=== PATIENT | female | born 1985 | race Caucasian/White ===

== ENCOUNTER 2021-10-26 10:00 | Outpatient (RCR) | payer BC, SELFPAY ==
--- NOTE | 2021-09-18 17:55 | HP.PTEVAL_ITS ---
Patient's Visit Information SHAQ ABAD is a 35 year old F referred to Physical Therapy by TWIN Villanueva with a diagnosis of R shoulder impingement syndrome. Date of Evaluation: 09/18/21 Physical Therapist: Ricci Vann, PT, ATC - Visit Plan Frequency: 2x /Week Duration: 1 Week Plan: Issue and instruct pt on HEP of R shoulder strengthening (rotator cuff) and scapular stab ex's - Subjective Pt reports she has had R shoulder pain for a chronic period of time. 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 Pt reports the pain has continued to worsen over this period. Pt is R hand dominant. Pt reports she has tingling in her R UE that starts at the elbow region and radiates into the 4th and fifth digits. 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 Pt reports she has had x-rays which revealed no significant findings at this time. Pt reports she has difficulty with sleep at night secondary to pain. Pt reports her pain is the worst on the lateral aspect of R shoulder. R shoulder pain is 7/10 at rest, 10/10 at worst (when she attempts to roll over at night. - Pain R shoulder Pain Intensity (Out of 10): 7 Pain Intensity Range: 10 - Objective Neuro: B UE sensation is WNL to light touch with exception to R C5 dermatome which is hyposensitive. MMT: L shoulder is 5/5 throughout. R shoulder is 3+/5 throughout and painful with all testing. ROM: L shoulder flex= 160, abd= 180, ER= 75, IR WNL; R shoulder flex= 140, abd= 110, IR limited to L4 level. Special testing: severe pain with apprehension and empty can tests. Palpation: Severe pain on lateral aspect of R UE. - Balance/Special Test Scores Quick DASH Score: 79.5450 - Goals Goal 1:: Decrease R shoulder pain x 50% to aid with sleep Goal Time Frame: 2-4 Weeks Goal 2:: Increase R shoulder ROM x 20 degrees to aid with work requirements. Goal Time Frame: 2-4 Weeks Goal 3:: Increase R shoulder strength x 1 grade to aid with IADL's Goal Time Frame: 2-4 Weeks Goal 4:: I with HEP Goal Time Frame: 2-4 Weeks - Rehabilitation Potential Physical Therapy Diagnosis: Pt has R shoulder pain, weakness, and limited ROM secondary to suspected labral pathology Rehabilitation Potential: Good - Anticipated Interventions Patient/Client Instruction: Educate patient on: Condition, Plan of Care For the Purpose of:: To improve self management Therapeutic Exercise to Include: Strength training, Active ROM, Scapular Strength/Stabilization For the Purpose of:: To decrease pain, To increase ROM, To improve muscle performance and motor function Cryotherapy (ice pack, ice massage): Yes For the Purpose of:: To decrease pain, To increase ROM, To improve muscle performance and motor function Thank you for the opportunity to evaluate your patient. For Medicare and Medicare HMO plans, please review the plan of care and approve it. It will need to be FAXED BACK to us at [phone] for Medicare purposes. For Medicare only, by signing this I certify the plan of care. Please let me know if there are questions or concerns regarding this plan of care. Physician Signature: Da te:
--- NOTE | 2021-10-26 10:32 | HP.PTDCSUM ---
It has been my pleasure to treat SHAQ ABAD referred by TWIN Villanueva, with the diagnosis of R shoulder impingement syndrome for a total of 4 visit(s). Discharge Date: Please see the following information for a summary of their discharge status. Subjective: I have pain if I move the wrong way R shoulder Pain Intensity (Out of 10): 2 % Improvement: 70 Objective/Function: R shoulder pain ranges from 2-5/10. R shoulder ROM: flex= 160, abd= 135, ER= 60, IR WNL. R shoulder MMT: flex= 5/5, abd= 4-/5, ER= 5/5, IR= 4/5. Pt is I with HEP. Rx goals achieved Goal 1:: Decrease R shoulder pain x 50% to aid with sleep Goal Progress: Goal Met Goal 2:: Increase R shoulder ROM x 20 degrees to aid with work requirements. Goal Progress: Goal Met Goal 3:: Increase R shoulder strength x 1 grade to aid with IADL's Goal Progress: Goal Met Goal 4:: I with HEP Goal Progress: Goal Met Plan: Discharge to HEP If there are questions or concerns regarding this patient's physical therapy, please feel free to call me at [phone]. Thank you for the referral of this patient. Sincerely, Ricci Vann, PT, ATC Balance/Gait/Functional tests - Balance/Special Test Scores Quick DASH Score: 54.5450
== END 2021-10-26 10:45 | disposition home or self-care (01) ==
LOC: PT 10:00
PROVIDERS: Visit Provider Nurse Practitioner
DX: M75.41 Impingement syndrome of right shoulder (principal)
CPT/HCPCS: 97110; 97161; 97164

== ENCOUNTER → 2022-02-01 | Outpatient (CLI) | payer BC, SELFPAY ==
[2022-02-01 12:05] LABS: AST(SGOT) 10 U/L (15-37); Alanine Aminotransfer ALT/SGPT 14 U/L (13-56); Albumin, Serum 4.3 g/dL (3.2-5.0); Alkaline Phosphatase 56 U/L (45-117); Bilirubin, Direct 0.15 mg/dL (0.00-0.30); Globulin 3.4 g/dL (2.2-4.2); Protein, Total 7.7 g/dL (6.4-8.2); Triglycerides 46 mg/dL
== END | disposition home or self-care (01) ==
DX: L70.0 Acne vulgaris (principal); L81.4 Other melanin hyperpigmentation; L81.0 Postinflammatory hyperpigmentation; Z79.899 Other long term (current) drug therapy
CPT/HCPCS: 36415; 80076; 84478

== ENCOUNTER 2022-07-19 11:00 | Outpatient (RCR) | payer BC, SELFPAY ==
--- NOTE | 2022-06-28 18:01 | HP.PTEVAL_ITS ---
Patient's Visit Information SHAQ ABAD is a 36 year old F referred to Physical Therapy by Dr. Markos Nieves DO with a diagnosis of L patellar tendonitis. Date of Evaluation: 06/28/22 Physical Therapist: Ricci Vann PT, ATC - Visit Plan Frequency: 2-3x /Week Duration: 4 Weeks Plan: L knee stretching, foam rolling, eccentric strengthening, bike, US, and dry needling - Subjective Pt reports her L knee has been sore for greater than one year. Pt reports he pain had an insidious onset in nature. Pt reports at that time, hjer shoulder was very sore and she focused getting that better. Now that her shoulder is sore, she is here to get relief for her knee. Pt denies sig L knee trauma in the past. Pt reports her pain is located on the inferior pose of the L patella and on occasions, will radiate down her anterior mccormick. Pt also notes pain in the posterior aspect of her L knee. Pt reports her L knee will give out on her, and feel like it is going to hyperextend at this time. Pt denies L knee locking up or popping at this time. Pt denies tingling or numbness at this time. Pt reports she has had xrays which [id number] no significant findings. Pt reports she lives in a two story house and has to negotiate stairs daily. 2/10 pain at rest, 5/10 pain at worst (throughout her day at work). Pt reports prolonged standing and ambulating both increase her pain. Occasinal sleep difficulty secondary to pain - Pain L knee Pain Intensity (Out of 10): 2 Pain Intensity Range: 5 - Objective Neuro: B LE sensation is WNL to light touch. B achilles reflex= 2/3. Palpation: Minor crepitus with AROM. No obvious deformity at this time. Pt is very sore along patella tendon. ROM: R knee 0- 140; L knee 0-135 degrees. MMT: R knee flex= 31, ext= 37 #F; L knee flex= 1, ext= 17 #F. Special testing: Pos apley compression test, pos mcconnels - Balance/Special Test Scores Lower Extremity Functional Score: 66 - Goals Goal 1:: Decrease L knee pain x 50% to aid with sleep Goal Time Frame: 4-6 Weeks Goal 2:: Increase L knee strength x 10#F to aid with stair negotiation Goal Time Frame: 4-6 Weeks Goal 3:: I with HEP Goal Time Frame: 4-6 Weeks - Rehabilitation Potential Physical Therapy Diagnosis: L knee pain, weakness, and limited ROM secondary to L knee patellar tendonitis Rehabilitation Potential: Good - Anticipated Interventions Patient/Client Instruction: Educate patient on: Condition, Plan of Care For the Purpose of:: To improve self management Therapeutic Exercise to Include: Strength training, Endurance training, Flexibilty training, Dynamic Lumbar Stabilization For the Purpose of:: To decrease pain, To increase ROM, To improve muscle performance and motor function Cryotherapy (ice pack, ice massage): Yes Ultrasound (thermal/non thermal): Yes For the Purpose of:: To decrease pain Thank you for the opportunity to evaluate your patient. For Medicare and Medicare HMO plans, please review the plan of care and approve it. It will need to be FAXED BACK to us at [phone] for Medicare purposes. For Medicare only, by signing this I certify the plan of care. Please let me know if there are questions or concerns regarding this plan of care. Physician Signature: Date:_
--- NOTE | 2022-07-19 11:22 | HP.PTDCSUM ---
It has been my pleasure to treat SHAQ ABAD referred by Dr. Markos Nieves DO, with the diagnosis of L patellar tendonitis for a total of 6 visit(s). Discharge Date: Please see the following information for a summary of their discharge status. Subjective: Pt reports she has been pain free for over one week L knee Pain Intensity (Out of 10): 0 % Improvement: 100 Objective/Function: L knee pain 0/10. L knee MMT: flex= 36, ext= 48 #F. Pt is I with HEP. Rx goals achieved Goal 1:: Decrease L knee pain x 50% to aid with sleep Goal Progress: Goal Met Goal 2:: Increase L knee strength x 10#F to aid with stair negotiation Goal Progress: Goal Met Goal 3:: I with HEP Goal Progress: Goal Met Plan: Discharge If there are questions or concerns regarding this patient's physical therapy, please feel free to call me at [phone]. Thank you for the referral of this patient. Sincerely, Ricci Vann, PT, ATC Balance/Gait/Functional tests - Balance/Special Test Scores Lower Extremity Functional Score: 80
== END 2022-07-19 15:27 | disposition home or self-care (01) ==
LOC: PT 11:00
PROVIDERS: Referring Provider Student in an Organized Health Care Education/Training Program; Visit Provider Student in an Organized Health Care Education/Training Program
DX: M76.52 Patellar tendinitis, left knee (principal); M25.562 Pain in left knee
CPT/HCPCS: 97035; 97110; 97161; 97164

== ENCOUNTER → 2022-09-20 | Outpatient (CLI) | payer BC, SELFPAY ==
[2022-09-20 12:05] LABS: Absolute Lymphocyte Count 1.48 X10^3/uL (0.83-4.51); Basophil# 0.04 X10^3/uL; Basophil% 0.8 % (0-1); Eosinophil# 0.14 X10^3/uL; Eosinophils% 2.8 % (0-5); Hemoglobin 14.6 g/dL (12.0-15.0); Lymphocyte # 1.48 X10^3/ul (0.83-4.51); Lymphocyte % 29.7 % (19-41); Mean Corp Hgb Conc 32.4 g/dL (32-36); Mean Corpuscular Hgb 29.9 pg (27.0-32.0); Mean Corpuscular Volume 92.2 fL (81-99); Mean Platelet Vol. 10.9 fl (6.2-12.0); NRBC Flagged by Analyzer 0 % (0-5); Neutrophil # 3.02 X10^3/uL (2.7-7.7); Neutrophil % 60.5 % (47-70); Platelet Count 298 K/mm3 (150-450); RBC Distribution Width CV 11.9 % (11.6-14.6); RBC Distribution Width SD 39.9 fl (35.1-43.9); Red Blood Count 4.88 M/mm3 (4.2-5.4)
[2022-09-20 13:01] LABS: ALB/GLOB Ratio 1.2 RATIO (0.9-2.4); AST(SGOT) 16 U/L (15-37); Alanine Aminotransfer ALT/SGPT 19 U/L (13-56); Albumin, Serum 4.3 g/dL (3.2-5.0); Alkaline Phosphatase 69 U/L (45-117); Anion Gap 7 (5-15); BUN 12 mg/dL (7-18); BUN/Creat Ratio 14.5 RATIO (10-20); Calcium,Total 9.7 mg/dL (8.5-10.1); Chloride 107 mmol/L (98-107); Cholesterol 193 mg/dL (200); Creatinine, Serum 0.82 mg/dL (0.55-1.02); EST Glomerular Filtration Rate 83 mL/min (>60); Est Glom Filt Rate - Afr Amer 101 mL/min (>60); Globulin 3.7 g/dL (2.2-4.2); Glucose 81 mg/dL (74-106); High Density Lipoprotein 71 mg/dL; Potassium 3.8 mmol/L (3.5-5.1); Sodium Level 138 mmol/L (136-145); Thyroid Stim Hormone (TSH) 0.96 uIU/mL (0.358-3.74); Triglycerides 58 mg/dL; Very Low Density Lipoprotein 12 mg/dL (5-40)
== END | disposition home or self-care (01) ==
LOC: MFPLAB 11:19
PROVIDERS: PCP Family Medicine; Visit Provider Family Medicine
DX: Z00.00 Encounter for general adult medical examination without abnormal findings (principal); Z13.0 Encounter for screening for diseases of the blood and blood-forming organs and certain disorders involving the immune mechanism; Z13.220 Encounter for screening for lipoid disorders; Z13.29 Encounter for screening for other suspected endocrine disorder
CPT/HCPCS: 36415; 80053; 80061; 84443; 85025

== ENCOUNTER → 2023-09-05 | Outpatient (CLI) | payer BC, SELFPAY ==
--- NOTE | 2023-09-05 11:47 | RAD_ITS ---
INDICATION: right thumb pain EXAMINATION/TECHNIQUE: X-RAY - RIGHT XR Hand Min 3 Views 3 VIEWS COMPARISON: No relevant prior comparison study available FINDINGS: SOFT TISSUES: No soft tissue swelling or gas. No radiopaque foreign body. BONES/JOINTS: No acute fracture or subluxation.. Normal alignment. Preservation of the joint space.. No sclerotic or destructive changes observed. RAD/Hand Min 3 Views IMPRESSION: Unremarkable examination. Electronically Signed: Warner Kim MD at 9:12 EDT ,
== END | disposition home or self-care (01) ==
LOC: MTRAD 11:45
PROVIDERS: PCP Family Medicine; Referring Provider Family Medicine; Visit Provider Family Medicine
DX: M79.646 Pain in unspecified finger(s) (principal)
CPT/HCPCS: 73130

== ENCOUNTER → 2023-10-22 | Outpatient (CLI) | payer BC, SELFPAY ==
--- NOTE | 2023-10-22 14:56 | NEURO ---
NCS and/or EMG Patient Report Ordering Doctor: Markos Nieves DATE OF SERVICE: 10/22/23 Clinical Summary: 38 year old female patient with symptoms of numbness and pain in the medial right hand and forearm. Nerve Conduction Studies Summary: Nerve conductions performed in the right upper extremity were within normal ranges. Needle Examination Summary: Needle examination of select muscles of the right upper extremity was normal. Impression: This is a normal electrodiagnostic study. There is no electrodiagnostic evidence of a right ulnar mononeuropathy, right median mononeuropathy at the wrist (carpal tunnel syndrome), or right cervical radiculopathy. Multi Select Codes Neurology Neurology Interp Codes: 91306-64 Musc test done w/n test comp (interp) (1) and 50589-79 Nrv cndj test 7-8 studies (interp)
== END | disposition home or self-care (01) ==
LOC: PSN 13:45
PROVIDERS: PCP Family Medicine; Referring Provider Student in an Organized Health Care Education/Training Program; Visit Provider Student in an Organized Health Care Education/Training Program
DX: R20.2 Paresthesia of skin (principal); M79.641 Pain in right hand
CPT/HCPCS: 95886; 95910

== ENCOUNTER 2023-11-14 07:52 | Outpatient (RCR) | payer BC, SELFPAY ==
--- NOTE | 2023-11-15 08:24 | HP.OTEVAL_ITS ---
Patient's Visit Information Visit Information Visit Information: SHAQ ABAD is a 38 year old F, referred to Occupational Therapy by Dr. Markos Nieves DO, with a diagnosis of carpal tunnel syndrome and lesion of ulnar nerve R upper limb. Date of Evaluation: 11/14/23 Occupational Therapist: Shawanda Harris, CORINER/Jermain, CHT Subjective Subjective: This 38-year-old female arrives with dx of carpal tunnel syndrome and lesion of ulnar nerve R side. Pt is right hand dominant. Pt started having pain in June. Currently not experiencing pain right now. States tingling in R LF, RF into wrist and palm and tip of R thumb and IF. Has burning sensation back of hand, and sometimes shooting pain in thumb. Sometimes elbow achiness. 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 Currently doing median nerve glides and prayer stretch. As the day goes on during work it gets worse, when not working has no pain. States difficulty with vacuuming, yard work, holding things for extended periods of time, scrolling on phone, weightlifting, and has trouble hol ding small objects like hair whelan and clips for work. ( pt states she did change her work schedule to longer days -this could contribute to her symptoms) Is not sleeping in her hand brace. Pain R hand/wrist: Current Pain Intensity: 0 Pain Intensity Range: 5 ROM Forearm: r/l WNL Wrist: R 50/50 L 60/65 ROM Comments: hx of right elbow injury in remote past - Strength Director Stage: R 70# L 80# Lateral Pinch: R 16# L 18# Tripod Pinch: R 18# L 16# Sensation Sensation Comments: monofilament testing 2.83 all fingers L and R (interpretation Normal sensation) Quick DASH-Disab of Arm,Shoulder& Hand Quick DASH Score: 15.9075 Goals Goal:Full use of affected hand in daily activities including work: Yes Other Goal: pt will report 50% reduction in symptoms by end of POC. pt will demo/report use of bracing and elbow/wrist/hand ergonomics with 100% accuracy by end of POC. pt will improve CTS questionnaire by 6 or more points by end of POC. pt will report increase I in all ADLs/IADLs by end of POC. 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 (pt self-pay and recommended to schedule follow up apt in 4 weeks/unless she continues to have issues) pt recommended to complete HEP to address above impairments. pt demo understanding and agrees to POC. Therapy session was directly supervised and doc. approved by Shawanda AGUERO/Jermain,CHT. Rehabilitation Potential: Good Anticipated Interventions Anticipated Interventions: A/AAROM/PROM, Strengthening, Modalities, Orthoses, Joint Protection/Energy Conservation, Ergonomic Education, Education re assistive Equipment, Education re Diagnosis and Home Program Visit Plan General Plan: decrease pain decrease numbness/tingling use hand/wrist/elbow normally again in ADLs/IADLs TEXT: Thank you for the opportunity to evaluate your patient. For Medicare and Medicare HMO plans, please review the plan of care and approve it. It will need to be FAXED BACK to us at [phone] for Medicare purposes. Please let me know if there are questions or concerns regarding this plan of care. Physician Signature: Date:
== END 2023-11-14 19:00 | disposition home or self-care (01) ==
LOC: OT 07:52
PROVIDERS: PCP Family Medicine; Referring Provider Student in an Organized Health Care Education/Training Program; Visit Provider Student in an Organized Health Care Education/Training Program
DX: G56.01 Carpal tunnel syndrome, right upper limb (principal); G56.21 Lesion of ulnar nerve, right upper limb
CPT/HCPCS: 97140; 97165; 97166; 97530